=== PATIENT | male | born 1955 | race Hispanic/Latino ===

== ENCOUNTER 2018-10-07 14:56 | Emergency (ER) | payer OTHER ==
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
[2018-10-07 16:45] VITALS: BP 126/80; PULSE 95; RESP 16; TEMP 98.2; O2SAT 96
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
== END 2018-10-07 17:37 | disposition home or self-care (01) ==
LOC: ED 14:56
DX: S39.012A Strain of muscle, fascia and tendon of lower back, initial encounter (principal); V23.4XXA Motorcycle driver injured in collision with car, pick-up truck or van in traffic accident, initial encounter; Y92.410 Unspecified street and highway as the place of occurrence of the external cause
CPT/HCPCS: 72070; 72100; 96372; 99282; J1885